=== PATIENT | female | born 1985 | race Caucasian/White ===

== ENCOUNTER 2016-12-06 05:36 | Outpatient (CLI) | payer MEDICAID ==
[~2016-12-06] VITALS: Ht 160 cm; Wt 123.4 kg
--- NOTE | ~2016-12-06 | CATH ---
Cardiac Diagnostic Report Demographics Patient Name SHREYA NETTLES Gender Female CR Date of 1985 Age 31 year(s) Patient Number [id number] Date of Study 12/06/2016 Visit Number [id number] Room Number G6399 [place] [id number] Ht 160 cm Wt 123.4 kg Referring Jorge Alberto Perez MD Primary Physician Physician Performing Tam Boles MD Secondary Physician Physician Diagnostic Tam Boles MD Assisting Physician Physician Interventional Physician Social Sciences Chair Physician Findings and Conclusions Diagnostic Findings and Conclusion anamolous LAD Diagnostic Recommendations CTA to define origin and course of LAD Procedure Description The patient was brought to the diagnostic cardiac catheterization-EP laboratory in the fasting, non-sedated state. Informed consent was obtained in the written and verbal form after the risks and benefits were explained. The patient had no further questions and agreed to proceed. The planned puncture-incision site(s) were shaved and prepped with ChloraPrep and draped in the usual sterile manner. Conscious sedation, supplemental oxygen, and pain control medications were delivered by a registered nurse under physician guidance. Surface ECG rhythm, blood pressure measurement, and pulse oximetry were monitored throughout the procedure. Arterial access. The access site was infiltrated with lidocaine. The vessel was entered with the Seldinger technique. A sheath was advanced into the vessel and used for catheter placement. Selective left coronary angiography. A catheter was advanced into the left coronary vessel ostium under Fluoroscopic guidance. Contrast was injected by hand. Images were obtained in multiple projections. Selective right coronary angiography. A catheter was advanced into the right coronary vessel ostium under fluoroscopic guidance. Contrast was injected by hand. Images were obtained in multiple projections. Left heart catheterization with ventriculography. A catheter was advanced across the aortic valve to the left ventricle under fluoroscopic guidance. Resting hemodynamics were obtained. With the catheter at the left ventricular apex, contrast was injected. Images were obtained in MACEDONIAN projections. Post-ventriculography LV pressure was obtained. The catheter was gradually withdrawn into the aorta with continuous pressure recording. Arterial artery hemostasis was achieved. The patient was transferred to a regular nursing floor via cart accompanied by a nurse. The patient left the laboratory in stable condition. Diagnostic Cath Status: Elective Procedure Procedure Type Diagnostic procedure:Ventriculogram:, Left, Angiography:, Coronary Angios w/[facility] Indications: Angina. The procedure was explained in detail to the patient. Risks, complications and alternative treatments were reviewed. Written consent was obtained. Medications Reviewed with Patient prior to Procedure. Angiographic Findings Dominance: Right Cardiac Arteries and Lesion Findings LMCA: Normal (0% Stenosis).large wnl LAD: Abnormal.anamaolis origion LCx: Normal (0% Stenosis).large ND wnl OM medium ok RCA: Normal (0% Stenosis).large dominant ok PL medium wnl PDA medium wnl Procedure Data Procedure Date Date: 12/06/2016Start: 08:06 AMEnd: 08:47 AM Entry Locations - Retrograde Percutaneous access was performed through the Right Femoral artery (Primary location). A 6 Fr sheath was inserted. Hemostasis was successfully obtained using Manual Compression. Closure Comments: pressure held by star. Procedure Medications Order and Administration + + +-------+------+ !Time !Medication !Dosage !Route ! + + +-------+------+ !12/06/2016 08:04 AM !Versed !1 mg !I.V. ! + + +-------+------+ !12/06/2016 08:04 AM !Fentanyl !50 mcg !I.V. ! + + +-------+------+ Devices Used - A6 Fr. BS JL 4 Diag. Catheterwas used for:Left coronary angiography. - A6 Fr. BS JR 4 Diag. Catheterwas used for:Right coronary angiography. - A6 Fr. BS Angled Pigtail Diag. Catheterwas used for:Left ventriculography. Contrast Material - Isovue [id number] ml Fluoroscopy Time: Diagnostic: 2:48 minutes. Total: 2:48 minutes. Fluoroscopy Dose: Diagnostic: 976 mGy. Total: 976 mGy. Estimated Blood Loss: 4 ml. Medical History Allergies - Penicillin. - Iodine. - Latex. - Other:(depakote, valproic acid). Risk Factors The patient risk factors include:obesity, treated hypertension, last creatinine: 70 mg/dl, creatinine clearance: 2.31 ml/min and former tobacco use. Admission Data Admission Date: 12/06/2016 Admission Time: 05:36 AM Clinical Evaluation Leading to Procedure - The patient's CAD presentation was assessed as: Unstable angina. - The patient's anginal syndrome during the past two weeks was assessed as: Class III according to the [place] Cardiovascular Society Classification System (CCS). - The reason for the patient's ear mold laboratory technician visit is pre-operative evaluation before non-cardiac surgery. VA LV function assessed as:Normal. Ejection Fraction - 12/06/2016 - Method: LV gram. EF%: 60. LVA Segment Contractility 1 - Normal 3 - Mild 5 - Severe 7 - Dyskinesis hypokinesis hypokinesis 2 - 4 - Moderate 6 - Akinesis 8 - Aneurysm Hypokinesis hypokinesis Hemodynamics Condition: Rest O2 Consumption: Estimated: 267.33Heart Rate: 108 bpm Pressures (mmHg) +-----+ + !Site !Pressure ! +-----+ + !AO !106/70 (89) ! +-----+ + !LV !120/0 ,12 ! +-----+ + !LV !120/0 ,13 ! +-----+ + !LV !120/-3 ,16 ! +-----+ + !LV !118/-2 ,17 ! +-----+ + !AO !105/66 (85) ! +-----+ + !LV !120/-1 ,17 ! +-----+ + Valve Gradients and Areas + +---------+---------+---------+ +---------+ + !Valve !Peak !Mean !Area !Index !Flow !Source ! + +---------+---------+---------+ +---------+ + !Aortic !14 !15 ! ! ! ! ! + +---------+---------+---------+ +---------+ + !Aortic !14 !15 ! ! ! ! ! + +---------+---------+---------+ +---------+ + Shunts Oxygen Values O2 Capacity 180.88 O2 Consumption 267.33 Discharge Data Discharge Date: 12/06/2016 Hospital Status: Outpatient Signatures dtt: Ramana Turcios (cardio) dtd: 12/06/16 0806 Physician Self Edit
[~2016-12-06 05:36] MED LIST: DOXYCYCLINE HY100 M2 PO; PRILOSEC20 MG PO; VITAMIN B-1000 MCG/M SUB-Q; VITAMIN B-121000 MCG PO; ZYPREXA10 MG PO
[2016-12-06] MEDS ORDERED: LOPRESSOR25 MG PO (10:00)
== END 2016-12-06 15:05 | disposition disaster alternative care site (69) ==
LOC: GCAT 05:36 → GPCU 05:36 → GPOC 06:00 → GCAT 15:05
PROC: B2111ZZ Fluoroscopy of Multiple Coronary Arteries using Low Osmolar Contrast (ICD-10-PCS; principal; 2016-12-06)
PROC: 4A023N7 Measurement of Cardiac Sampling and Pressure, Left Heart, Percutaneous Approach (ICD-10-PCS; principal; 2016-12-06)
PROC: B2151ZZ Fluoroscopy of Left Heart using Low Osmolar Contrast (ICD-10-PCS; principal; 2016-12-06)
DX: R07.9 Chest pain, unspecified (principal); Q24.5 Malformation of coronary vessels; K21.9 Gastro-esophageal reflux disease without esophagitis; F20.9 Schizophrenia, unspecified; F39 Unspecified mood [affective] disorder; Q21.0 Ventricular septal defect; K44.9 Diaphragmatic hernia without obstruction or gangrene; E53.8 Deficiency of other specified B group vitamins; E66.9 Obesity, unspecified; Z68.42 Body mass index [BMI] 45.0-49.9, adult; I10 Essential (primary) hypertension; Z87.891 Personal history of nicotine dependence; Z79.899 Other long term (current) drug therapy
CPT/HCPCS: J1644; J2001; J2250; J3010; J7030

== ENCOUNTER → 2016-12-07 | Outpatient (CLI) | payer MEDICAID ==
[~2016-12-07] MED LIST changes: +LOPRESSOR25 MG PO
--- NOTE | ~2016-12-07 | OR ---
PATIENT'S NAME: YOON CASH [facility] AGE: 31 Y [address] ROOM: [place] [address] LOCATION: GRAD ADMIT DATE: 12/07/2016 OR/Procedure Report DISCHARGE DATE: FAMILY PHYSICIAN: Duncan Azul MD ATTENDING PHYSICIAN: Ramana Turcios SURGEON: Ivelisse Hair MD FRUIT HARVESTER MACHINE OPERATOR: DATE OF PROCEDURE: 12/07/2016 PROCEDURE: Cardiac MRI study. INDICATION: Evaluate the origin of the coronaries as possible, anomalous coronary artery is a possibility in the case. The patient was brought to the MRI suit and cardiac MRI performed. The heart rate in the MRI was such that, the images are so good degraded because of the variations in heart rate that no conclusion could be drawn at this time. The plan is to wait until the infusion pump arrives and repeat study with better heart rate control to obtain the images better. No conclusion could be drawn from this study as the study was a very poor quality study due to the patient's heart rate variation. MD HORACIO DAMON/estela /[id number] d: 01/11/17 1356 t: 01/18/17 1058, OPERATIVE SUMMARY
== END | disposition disaster alternative care site (69) ==
LOC: GRAD 12:34
DX: Q24.5 Malformation of coronary vessels (principal); Z53.8 Procedure and treatment not carried out for other reasons

== ENCOUNTER 2016-12-20 16:35 | Emergency (ER) | payer MEDICAID ==
--- NOTE | ~2016-12-20 | ENPV ---
Vascular Lower Extremities DVT Study Procedure Demographics Patient Name YOON CASH Date of Study 12/20/2016 Patient Number [id number] Gender Female Date of 1985 Age 31 Visit Number [id number] Height Accession Number [id number] Weight Room Number BSA BMI Referring [place] Interpreting Yong Latif MD Physician Physician Physician Ordering Physician Property Handler Drone Pilot Carmelina Engel [facility] Conclusions Summary Negative for DVT bilaterally Procedure Type of Study: Veins:Lower Extremities DVT Study, Venous Duplex Lower Extremity Bilateral. Allergies - Penicillin. - Iodine. - Latex. - Other:(depakote, valproic acid). Patient Status:Routine. Study Location:Inpatient Portable. Technical Quality:Adequate visualization. Velocities are measured in cm/s ; Diameters are measured in cm Right Lower Extremities DVT Study Measurements Right 2D and Doppler Measurements + + + + +------+------+ + !Location !Visualized!Compressibility!Thrombosis!Signal!Reflux!Reflux ! ! ! ! ! ! ! !(sec) ! + + + + +------+------+ + !GSV Thigh !Yes !Yes !None !Phasic!No ! ! + + + + +------+------+ + !Common !Yes !Yes !None !Phasic!No ! ! !Femoral ! ! ! ! ! ! ! + + + + +------+------+ + !Prox !Yes !Yes !None !Phasic!No ! ! !Femoral ! ! ! ! ! ! ! + + + + +------+------+ + !Mid Femoral!Yes !Yes !None !Phasic!No ! ! + + + + +------+------+ + !Dist !Yes !Yes !None !Phasic!No ! ! !Femoral ! ! ! ! ! ! ! + + + + +------+------+ + !Popliteal !Yes !Yes !None !Phasic!No ! ! + + + + +------+------+ + !Gastroc !Yes !Yes !None !Phasic!No ! ! + + + + +------+------+ + !PTV !Yes !Yes !None !Phasic!No ! ! + + + + +------+------+ + !Peroneal !Yes !Yes !None !Phasic!No ! ! + + + + +------+------+ + Left Lower Extremities DVT Study Measurements Left 2D and Doppler Measurements + + + + +------+------+ + !Location !Visualized!Compressibility!Thrombosis!Signal!Reflux!Reflux ! ! ! ! ! ! ! !(sec) ! + + + + +------+------+ + !GSV Thigh !Yes !Yes !None !Phasic!No ! ! + + + + +------+------+ + !Common !Yes !Yes !None !Phasic!No ! ! !Femoral ! ! ! ! ! ! ! + + + + +------+------+ + !Prox !Yes !Yes !None !Phasic!No ! ! !Femoral ! ! ! ! ! ! ! + + + + +------+------+ + !Mid Femoral!Yes !Yes !None !Phasic!No ! ! + + + + +------+------+ + !Dist !Yes !Yes !None !Phasic!No ! ! !Femoral ! ! ! ! ! ! ! + + + + +------+------+ + !Popliteal !Yes !Yes !None !Phasic!No ! ! + + + + +------+------+ + !Gastroc !Yes !Yes !None !Phasic!No ! ! + + + + +------+------+ + !PTV !Yes !Yes !None !Phasic!No ! ! + + + + +------+------+ + !Peroneal !Yes !Yes !None !Phasic!No ! ! + + + + +------+------+ + Signature dtt: DORINDA MELVIN dtd: 12/20/16 1729 Physician Self Edit
--- NOTE | ~2016-12-20 | ER ---
PATIENT'S NAME: YOON CASH [facility] AGE: 31 Y [address] ROOM: [place] [address] LOCATION: ED ADMIT DATE: 12/20/2016 ER/Outpatient Report DISCHARGE DATE: 12/20/2016 FAMILY PHYSICIAN: Duncan Azul MD ATTENDING PHYSICIAN: Luisa Cavanaugh Time of Arrival: 1700 hours. Time of Evaluation: 1710 hours. CHIEF COMPLAINT: Swelling of the lower legs. HISTORY OF PRESENT ILLNESS: The patient states that she has chronic swelling of her lower extremities. It seems like it has gotten worse since December 12. Initially, she thought that the right leg was worse than the left, but upon arrival to the ER, she feels like both legs are swollen more than what they had been. She states she does have a history of ASD repair at age 14 and had a heart catheterization done on December 06. States she has seen Dr. Duncan Azul since that time and had a clean bill of health. She did get started on Zyprexa approximately 1 month ago. She denies any pain of her legs, but they just feel tight to her. ALLERGIES: PENICILLIN, BEES, LATEX, DEPAKOTE. CURRENT MEDICATIONS: 1. Zofran. 2. Vitamin B. 3. Zyprexa. 4. Metoprolol. PAST MEDICAL HISTORY: Schizophrenia, heart disease. PAST SURGICAL HISTORY: ASD repair at age 14, heart catheterization on December 06, 2016. SOCIAL HISTORY: Negative for use of alcohol, drugs, or tobacco. REVIEW OF SYSTEMS: Negative other than those mentioned in the HPI. PHYSICAL EXAMINATION: VITAL SIGNS: She states she is 5 feet 3 inches. She weighs 124 kg, pulse is PATIENT'S NAME: YOON CASH [facility] AGE: 31 Y [address] ROOM: [place] [address] LOCATION: [facility] ADMIT DATE: 12/20/2016 ER/Outpatient Report DISCHARGE DATE: 12/20/2016 FAMILY PHYSICIAN: Duncan Azul MD ATTENDING PHYSICIAN: Luisa Cavanaugh 98, respirations 24, temperature of 99 tympanic, O2 saturation is 94% on room air. The nurse did measure her lower calf area, and they measured 14 inches bilaterally, and they are equal. The patient is awake, alert, and oriented x4. SKIN: Her skin is pink, warm, and dry. RESPIRATIONS: Even and nonlabored. Lung sounds are clear throughout. HEART: Regular rate and rhythm. ABDOMEN: Soft and nondistended. Bowel sounds are present. EXTREMITIES: She has strong pedal pulses. She has nonpitting edema of the bilateral ankle areas, whole lower legs are edematous, but it is nonpitting. LABORATORY DATA AND X-RAYS: Lab work was drawn. CBC is within normal limits. Chem panel is within normal limits. D-dimer was negative at 0.34. Venous Doppler of the lower extremities was completed. It is negative for DVT. IMPRESSION: Peripheral edema. PLAN: Home. Rest. Elevate her legs. Follow up with Dr. Azul within the next 2 to 3 days. She verbalized understanding. VIGNESH HARRELL APRN FOR MD LOIDA KEN/estela /[id number] d: 12/21/160 t: 12/27/16 1423, OUTPATIENT REPORT
[2016-12-20 17:59] LABS: BASOPHIL # 0.1 K/uL (0.0-0.2); BASOPHIL % 0.5 %; EOSINOPHIL # 0.3 K/uL (0.0-0.5); EOSINOPHIL % 3.2 %; HEMATOCRIT 37.6 % (33.0-46.0); HEMOGLOBIN 12.8 g/dL (11.0-15.0); IMMATURE GRANULOCYTE % 0.3 %; LYMPHOCYTE # 3.1 K/uL (0.8-4.0); LYMPHOCYTE % 29.3 %; MCH 31.4 pg (27.0-34.0); MONOCYTE # 0.6 K/uL (0.0-1.0); MONOCYTE % 5.3 %; MPV 9.1 fl (9.4-12.4); NEUTROPHIL # (ANC) 6.4 K/uL (1.8-7.8); NEUTROPHIL % 61.4 %; NRBC % 0 /100WBC (0-0.00); PLATELET COUNT 261 K/uL (150-450); RBC 4.08 M/uL (3.50-5.00); RDW-CV 12.5 % (11.9-14.6); WBC 10.5 K/uL (4.0-11.0)
[2016-12-20 18:00] LABS: MCV 92.2 fl (83.0-98.0)
[2016-12-20 18:09] LABS: PROTIME 10.2 SECONDS (9.6-11.1); PTT 27 SECONDS (25-32)
[2016-12-20 18:15] LABS: ALBUMIN 3.3 gm/dL (3.5-5.0); ALK PHOS 120 IU/L (33-138); ALT 26 IU/L (12-78); ANION GAP 14.1 (10.0-19.0); AST 21 IU/L (10-40); BLOOD UREA NITROGEN 12 mg/dL (6-24); CALCIUM 8.5 mg/dL (8.5-10.5); CHLORIDE 108 mMol/L (96-110); CO2 23 mMol/L (22-32); CREATININE 0.8 mg/dL (0.5-1.1); ESTIMATED GFR (MDRD EQUATION) > 60; POTASSIUM 4.1 mMol/L (3.7-5.1); SODIUM 141 mMol/L (135-145); TOTAL BILIRUBIN 0.2 mg/dL (0.0-1.5); TOTAL PROTEIN 7.6 g/dL (6.0-8.4)
== END 2016-12-20 18:45 | disposition disaster alternative care site (69) ==
LOC: GMED 16:35
PROVIDERS: Nurse Practitioner Family
DX: R60.0 Localized edema (principal); Z88.0 Allergy status to penicillin; Z91.040 Latex allergy status

== ENCOUNTER → 2017-01-23 | Outpatient (CLI) | payer MEDICAID ==
--- NOTE | ~2017-01-23 | OR ---
PATIENT'S NAME: YOON CASH [facility] AGE: 31 Y [address] ROOM: [place] [address] LOCATION: [facility] ADMIT DATE: 01/23/2017 OR/Procedure Report DISCHARGE DATE: FAMILY PHYSICIAN: Duncan Azul MD ATTENDING PHYSICIAN: Ramana Turcios SURGEON: Ivelisse Hair MD PSYCHIATRIC THERAPIST: DATE OF PROCEDURE: 01/23/2017 PROCEDURE PERFORMED: Cardiac MRI. The patient had initial evaluation with cardiac catheterization which resulted in concern that there may be an anomalous origin of coronary arteries. An initial evaluation with cardiac MRI was obtained because of the patient's age and hesitancy to expose to significant amount of radiation with cardiac CT. Because of claustrophobia and poor heart rate control, her whole heart MRI images were not suitable for proper interpretation to get information that was asked. So, the patient was prepped with antianxiety medications as well as Corlanor to control her rate, and the study was repeated. Only the part requiring whole heart MRI was repeated, and the following is the completed report of the MRI study. 1. Sequences run, Localizers. 2. SSFP. 3. Whole heart MRI. 4. 17 mL of ProHance was administered. CONCLUSION: 1. The right coronary artery arises from the right coronary sinus appropriately. 2. The left coronary artery arises from the left coronary sinus, possibly slightly posterior to the usual site of origin, and it divides into LAD and left circumflex. 3. End-diastolic volume is 189 mL. 4. End-systolic volume is 74 mL. 5. Stroke volume is 115 mL. 6. Cardiac output is 6.6 L/minute. 7. Ejection fraction is 61%. 8. There are no regional wall motion abnormalities noted. 9. There is no pericardial effusion. 10. There is mild mitral regurgitation seen. 11. The atria appear to be normal in size. 12. Right ventricular function appears to be normal. PATIENT'S NAME: YOON CASH [facility] AGE: 31 Y [address] ROOM: [place] [address] LOCATION: [facility] ADMIT DATE: 01/23/2017 OR/Procedure Report DISCHARGE DATE: FAMILY PHYSICIAN: Duncan Azul MD ATTENDING PHYSICIAN: Ramana Turcios MD HORACIO DAMON/estela /[id number] d: 01/25/17 1111 t: 02/13/17 1454, OPERATIVE SUMMARY
== END | disposition disaster alternative care site (69) ==
LOC: GRAD 09:08
DX: Q24.5 Malformation of coronary vessels (principal); I34.0 Nonrheumatic mitral (valve) insufficiency

== ENCOUNTER 2017-06-09 18:23 | Emergency (ER) | payer MEDICAID ==
--- NOTE | ~2017-06-09 | ER ---
PATIENT'S NAME: YOON CASH [facility] AGE: 31 Y [address] ROOM: [place] [address] LOCATION: [facility] ADMIT DATE: 06/09/2017 ER/Outpatient Report DISCHARGE DATE: 06/09/2017 FAMILY PHYSICIAN: Duncan Azul MD ATTENDING PHYSICIAN: Yonis Martinez Time of Patient's Arrival: 1823 hours. Time of Patient's Evaluation: 1840 hours. CHIEF COMPLAINT: Migraine headache. HISTORY OF PRESENT ILLNESS: This is a 31-year-old female who presents to the ER with a migraine headache. This has been going on for the past couple of weeks. She states she initially thought it was a caffeine headache, but it just would never go away even though she started drinking caffeine again. She was seen by her primary care physician, Duncan Azul today, he did give her a shot of Phenergan and Toradol. She states that it did not relieve her headache. She states she has had no recent illness. No fever or chills. She states it is similar to her previous headaches and is located across her forehead and eyes. It does make her feel photophobic and she has had nausea. She denies any other problems at this time. ALLERGIES: PENICILLIN. MEDICATIONS: Please see medication list in nurse's notes. PAST MEDICAL HISTORY: 1. Schizophrenia. 2. Migraines. 3. She has had an ASD/VSD heart surgery. 4. . SOCIAL HISTORY: Denies smoking, drug, or alcohol use. REVIEW OF SYSTEMS: All systems are reviewed and are negative with the exception of those discussed in the HPI. PHYSICAL EXAMINATION: VITAL SIGNS: Height 5 feet 3 inches stated, weight 127.6 kg taken, blood PATIENT'S NAME: YOON CASH [facility] AGE: 31 Y [address] ROOM: [place] [address] LOCATION: [facility] ADMIT DATE: 06/09/2017 ER/Outpatient Report DISCHARGE DATE: 06/09/2017 FAMILY PHYSICIAN: Duncan Azul MD ATTENDING PHYSICIAN: Yonis Martinez pressure is 154/77, pulse 114, respirations 20, temperature 99.3 degrees tympanically, and saturations 95% on room air. Patricio Coma Score is 15. GENERAL: Alert, calm, obese female, in no acute distress. HEENT: Head: Normocephalic. Eyes: Pupils are equal and reactive to light. Ears: TMs display good reflexes bilaterally. Auditory canals are clear. Nose: Turbinates pink with no drainage. Throat: No exudates or erythema. She does display moist mucous membranes. NECK: Supple. No lymphadenopathy. No nuchal rigidity. LUNGS: Clear to auscultation bilaterally. HEART: Regular rate and rhythm. ABDOMEN: Soft, nontender. EXTREMITIES: No clubbing or cyanosis. She has full range of motion of all limbs. LABORATORY DATA AND X-RAYS: None were done. IMPRESSION: Migraine headache. ASSESSMENT AND PLAN: We did start an IV here in the emergency room. I did give her a liter of IV fluids along with 50 mg of Benadryl and 10 mg of Compazine IV. She states that her headache is almost completely gone. We will dismiss her to home. She needs to continue to push fluids, rest in a quiet and dark area, and follow up with her primary care physician if she needs to. The patient understands and agrees with care. ELIE POWERS PA-C FOR MD VICTORIANO LUCAS/estela /[id number] d: t: 06/15/17 1236, OUTPATIENT REPORT
== END 2017-06-09 20:10 | disposition disaster alternative care site (69) ==
LOC: GMED 18:23
DX: G43.909 Migraine, unspecified, not intractable, without status migrainosus (principal); F20.9 Schizophrenia, unspecified; Z88.0 Allergy status to penicillin; Z98.890 Other specified postprocedural states; Z79.899 Other long term (current) drug therapy
CPT/HCPCS: J0780; J1200; J7030